=== PATIENT | male | born 1955 | race Caucasian/White ===

== ENCOUNTER 2017-02-17 11:51 | Observation (INO) | payer OTHER ==
[~2017-02-17] VITALS: Ht 177.8 cm; Wt 102.8 kg
[2017-02-17] VITALS (8 sets, daily range): BP systolic 132–148; BP diastolic 76–92; PULSE 64–77; RESP 18–20; O2SAT 93–100
--- NOTE | 2017-02-17 12:05 | ED.REPORT ---
HPI-General Illness Date of Service Feb 17, 2017 ED Provider: Dr. 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 Associated symptoms include intermittent headache, spinning sensation, change in balance, as well as nausea. He has been able to walk on his own, although the transition from sitting to standing up is intensifies his symptoms. Looking upward or downward exacerbates his symptoms. He denies any change in focal numbness or weakness. He presented with severe dizziness and left-sided weakness during his last stroke. Nursing Notes Stated Complaint: HEADACHE Chief Complaint: Headache Nursing Notes Reviewed: Yes Allergies: Coded Allergies: No Known Allergies (Unverified Allergy, Unknown, 03/20/14) General Time Seen by MD: 12:04 Chief Complaint Dizziness Hx Obtained From: Patient, Spouse Arrived By: Walk-in Sudden in Onset?: No Onset Occurred: 4 days ago Symptom Duration: Constant Severity: Current: No pain currently Severity: Maximum: No pain Recent Healthcare: No recent doctor visit, No recent hospitalization Similar Sx Previous: Yes Past Medical History Past Medical History Stroke associated with vertebral occlusion Past Surgical History Surgery involving vertebral occlusion Smoking History Never Smoker Social History No history provided Alcohol Use: "Social" Ambulatory Status Independent Review of Systems Full Review of Systems Constitutional: Denies: Fever Cardiovascular: Denies: Chest pain GI: Reports: Nausea, Denies: Abdominal pain, Vomiting Musculoskeletal: Denies: Back pain Neurologic: Reports: Dizziness, Headache, Lightheaded, Problem walking, Spinning sensation, Denies: Change LOC, Confusion, Focal weakness, Numbness, Seizure, Shaking, Slurred speech, Unable to speak, Vision change Complete sys rev & neg: except as marked. Physical Exam Vital Signs Vital Signs Date Time Temp Pulse Resp B/P Pulse Ox O2 Delivery O2 Flow Rate FiO2 02/17/17 14:02 65 18 137/84 95 Room Air 02/17/17 13:04 68 20 132/85 94 Room Air 02/17/17 11:55 36.0 77 18 148/92 97 Room Air Initial VS: Reviewed, Vital signs normal Head / Eyes: Atraumatic, Normocephalic, PERRL ENT: Mucous membranes moist, Conjunctiva normal, No scleral icterus Neck: Supple, Full range of motion Respiratory: Breath sounds normal, Clear to auscultation, No respiratory distress Cardiovascular: Regular rate & rhythm, Heart sounds normal, Intact distal pulses Abdomen / GI: Soft, Non-tender Extremities: Vascular intact, Neuro intact Skin: Warm, Dry Psychiatric: Mood/affect normal, Behavior normal General/Constitutional: Awake, Alert, No acute distress, Cooperative, Not toxic appearing Neurologic: Oriented X3, Speech NL, No motor deficits, No sensory deficits, Memory NL Vertical nystagmus present NIH = 0 Interpretation & Diagnostics Lab Results Interpretation Result Diagram: 02/17/17 1205 02/17/17 1205 Test 02/17/17 12:05 White Blood Count 8.1th/mm3 (3.8-10.1) Red Blood Count 5.04mil/mm3 (4.40-5.80) Hemoglobin 14.9g/dL (13.8-17.2) Hematocrit 42.3% (41.0-50.0) Mean Corpuscular Volume 83.9fL (81-100) Mean Corpuscular Hemoglobin 29.6pg (27.0-35.0) Mean Corpuscular Hemoglobin Concent 35.2% (32.0-37.0) Red Cell Distribution Width 12.9% (12.3-15.4) Platelet Count 263bil/L (150-400) Neutrophils (%) (Auto) 81.5% (40-74) Lymphocytes (%) (Auto) 12.3% (14-46) Monocytes (%) (Auto) 5.9% (4-12) Eosinophils (%) (Auto) 0% (0-5) Basophils (%) (Auto) 0.2% (0-3) Prothrombin Time 10.0sec (8.1-12.5) Prothromb Time International Ratio 0.94ratio Sodium Level 136mEq/L (134-144) Potassium Level 4.2mEq/L (3.5-5.2) Chloride Level 101mEq/L (97-108) Carbon Dioxide Level 19mmol/L (18-29) Blood Urea Nitrogen 15mg/dL (8-27) Creatinine 1.05mg/dL (0.76-1.27) Estimat Glomerular Filtration Rate 76mL/min (>59) Glucose Level 131mg/dL (60-99) Calcium Level 9.6mg/dL (8.5-10.1) Magnesium Level 2.3mg/dL (1.6-2.6) Total Bilirubin 0.7mg/dL (0.0-1.2) Aspartate Amino Transf (AST/SGOT) 22U/L (0-50) Alanine Aminotransferase (ALT/SGPT) 32U/L (0-44) Alkaline Phosphatase 108U/L (25-160) Troponin T 0.010ug/L (0.0-0.011) Pro-B-Type Natriuretic Peptide 138.3pg/mL (0-210) Total Protein 7.6g/dL (6.4-8.4) Albumin 4.9g/dL (3.4-5.0) Hold Martinez Top Tube Received (Received) ECG Interpretation ECG Interpretation: Sinus rhythm bnormal R-wave progression, early transition. Time: 12:05 Interpreted by: ED physician Abnormal Rate: Rate (69) X-Ray Chest Interpretation Chest Xray Interpretation: IMPRESSION: No acute pulmonary process. Dictated by: Ying Marin M.D. on 02/17/2017 at 12:48 Approved by: Ying Marin M.D. on 02/17/2017 at 12:48 View: Portable, [address] Head Interpretation IMPRESSION: 1. No acute intracranial process. 2. Mild atrophy and chronic microvascular ischemic changes. Dictated by: Ying Marin M.D. on 02/17/2017 at 12:29 Approved by: Ying Marin M.D. on 02/17/2017 at 12:31 Study: Head CT no contrast Interpretation / Wet Read by: Interpret - Radiologist Re-Eval/Medical Decision Med Decision/Clinical Course Findings are highly suspicious for a cerebellar stroke, patient be admitted, aspirin given, briefly discussed with on-call neurology at [facility] who recommends standard stroke evaluation with MRI. Source of Hx: Old records Time of Eval: 13:00 Re-Evaluation/Progress Note: Patient is informed of radiology and EKG result. Consultation #1: Referral / Consult Name: Raj Connor MD Consulted With: Hospitalist Call Returned at: 14:11 Note: Discussed patient current condition. Suggests calling [facility] neurology. Consultation #2: Consulted With: Neurology Call Returned at: 14:13 Note: Discussed with [facility] neurologist Dr. Fulton. Recommends standard stroke workup including MRI. Counseled Regarding: Diagnosis, Lab results, Need for admission Discharge & Departure Primary Impression: CVA (cerebral vascular accident) CVA mechanism: unspecified Qualified Code: I63.9 - Cerebral infarction, unspecified Disposition: ADMITTED TO HOSPITAL Discharge Condition All VS Reviewed: Yes Condition: Stable Referrals: Shelia Kerr MD (PCP) Lizzette Attestation Portions of this note were transcribed by Jaya Joshua and Dale Souza. I, Dr. Balbuena personally performed the history, physical exam and medical decision-making; I reviewed and confirmed the accuracy of the information in the transcribed note. Signed by: Jaya Joshua and Dale Souza, Lizzette, 02/17 1219 copies to: Shelia Kerr MD Risk Factors NIH Stroke Scale Level of Consciousness: Alert and responsive (0) Ask Month & Age: Both questions right (0) Open/Close Eyes/Hand [employer]ter: Performs both tasks (0) Horizontal EO Movements: None (0) Visual Duarte: No visual loss (0) Facial Palsy: Normal symmetry (0) Right Arm Motor Drift (10s): No drift 10 sec (0) Left Arm Motor Drift (10s): No drift 10 sec (0) Right Leg Motor Drift (5s): No drift 5 sec (0) Left Leg Motor Drift (5s): No drift 5 sec (0) Limb Ataxia FNF/Heel-Bartlett: No ataxia (0) Sensation (Arms/Legs/Face): No sensory loss (0) Language Aphasia: No aphasia, normal (0) Dysarthria: No dysarthria, normal (0) Extinction/Inattention: No exctinct/inattent (0) NIHSS Score: 0 Time NIHSS Performed: 12:38 Date NIHSS Performed: Feb 17, 2017 Darren Balbuena DO Feb 17, 2017 12:04 Jaya Joshua Feb 17, 2017 12:14 DALE SOUZA Feb 17, 2017 14:19
[2017-02-17] MEDS ORDERED: 0.9% Sodium Chloride 1,000 ML IV ONE (12:15)
[2017-02-17 12:19] LABS: BASOPHILS % (AUTO) 0.2 % (0-3); EOSINOPHILS % (AUTO) 0 % (0-5); MONOCYTES % (AUTO) 5.9 % (4-12); Mean Corpuscular Hemoglobin 29.6 pg (27.0-35.0); Mean Corpuscular Volume 83.9 fL (81-100); NEUTROPHILS % (AUTO) 81.5 % (40-74); Platelet Count 263 bil/L (150-400)
--- NOTE | 2017-02-17 12:33 | DRSVH ---
PROCEDURE: CT BRAIN WITHOUT CONTRAST ([id number]) INDICATIONS: vertigo, off balance, prior vert art occlusion TECHNIQUE: Noncontrast 4.5 mm thick angled axial sections acquired from the foramen magnum to the vertex, with c oronal reformats. COMPARISON: [facility], CT, ANGIO HEAD AND NECK (P), 03/20/2014, 12:47. [facility], CT, BRAIN (TPA), 03/20/2014, 10:55. [facility], RG, CT HEAD W/O CONTRAST, 10/23/2005, 12: 18. FINDINGS: Image quality: Excellent. CSF spaces: Basal cisterns are patent. No extra-axial fluid collections. The ventricles are symmet alyssa in size and shape. Brain: No intracranial bleeds or masses. There is cerebral volume loss for age, with resultant vent ricular and sulcal prominence. There are periventricular and deep white matter chronic small vessel ischemic changes. There is intracranial internal carotid artery atherosclerosis. Skull and face: Calvarium and visualized facial bones appear intact, without suspicious lesions. Sinuses: Visualized sinuses and mastoids are clear. IMPRESSION: 1. No acute intracranial process. 2. Mild atrophy and chronic microvascular ischemic changes. Dictated by: Ying Marin M.D. on 02/17/2017 at 12:29 Approved by: Ying Marin M.D. on 02/17/2017 at 12:31
[2017-02-17 12:39] LABS: INR 0.94 ratio
[2017-02-17 12:46] LABS: TROPONIN T 0.01 ug/L (0.0-0.011)
--- NOTE | 2017-02-17 12:50 | DRSVH ---
PROCEDURE: X-RAY CHEST ONE VIEW, PORTABLE ([id number]) INDICATIONS: SHORTNESS OF BREATH TECHNIQUE: One view of the chest was acquired. COMPARISON: [facility], , CHEST 1VW (PORTABLE), 03/20/2014, 11:15. FINDINGS: Surgical changes and devices: None. Lungs and pleura: No pleural effusions or pneumothorax. Lungs are clear. Mediastinum: Mediastinal contours appear normal. Heart size is normal. Bones and chest wall: No suspicious bony lesions. Overlying soft tissues appear unremarkable. IMPRESSION: No acute pulmonary process. Dictated by: Ying Marin M.D. on 02/17/2017 at 12:48 Approved by: Ying Marin M.D. on 02/17/2017 at 12:48
[2017-02-17 12:57] LABS: Magnesium 2.3 mg/dL (1.6-2.6)
[2017-02-17] MEDS ORDERED: Polyethylene Glycol (PEG) 17 Gm Powder PO PRN (14:20)
[2017-02-17] MEDS ORDERED: Alum-Mag Hydrox-Simeth 30 mL Suspension PO PRN ×2 (14:20→14:35)
[2017-02-17] MEDS ORDERED: Ondansetron 2 mg/mL 2 mL Inj IVPUSH PRN ×3 (14:20→14:35)
[2017-02-17] MEDS: 0.9% Sodium Chloride 1,000 ML IV SCH ×2 (15:04→21:28)
[2017-02-17] MEDS ORDERED: NEBI10TA2 (17:50)
[2017-02-17] MEDS ORDERED: AMN100C (17:50)
[2017-02-17] MEDS ORDERED: QUET100T69 (17:50)
[2017-02-17] MEDS ORDERED: LIT300 PO (17:54)
[2017-02-17] MEDS ORDERED: ATOR20TA PO (17:54)
[2017-02-17] MEDS ORDERED: FUR20 PO (17:54)
[2017-02-17] MEDS ORDERED: ASPI-973 PO (17:54)
[2017-02-17] MEDS ORDERED: LAMO200T2 PO (17:54)
--- NOTE | 2017-02-17 20:05 | NUR ---
Back from MRI
--- NOTE | 2017-02-17 20:37 | DRSVH ---
PROCEDURE: MRI STROKE PROTOCOL ([id number]) Pre- and post-contrast brain MRI, non-contrast brain MR angiogram, pre- and postcontrast neck MR wendy ogram INDICATIONS: Dizziness with Ataxia,right vertebral artery surgery 2014 TECHNIQUE: Brain: Noncontrast axial T1 spin echo, axial T2 fast spin echo, sagittal and axial FLAIR, coronal T2 fast spin echo, axial gradient echo, axial diffusion and ADC through the brain. After the administr ation of contrast, axial 3D VIBE of the cranial vasculature and brain. Brain MRA: Non-contrast 3-D time of flight MR angiogram, with multiple cyklqpo-zqmyudasz-gbmifqkuud (MIP) reformats performed. Neck MRA: Axial and sagittal TruFISP through the neck. Coronal dynamic MR angiogram during administ ration of contrast in the arterial and venous phases, with 3-dimenstional fvqnjmp-ptkjochog-xcotvfifk n (MIP) reformats constructed from subtraction images. COMPARISON: [facility], MR, MR ANGIO HEAD W CON, 03/20/2014, 15:50. [facility], [facility]RAIN W&WO CON, 03/20/2014, 15:50. [facility], CT, ANGIO HEAD AND NECK (P), , 12:47. [facility], CT, BRAIN (TPA), 03/20/2014, 10:55. [facility], RG, CT HEAD W/O CONTRAST, 10/23/2005, 12:18. [facility], CT, CT BRAIN WO CON, 02/17/2017, 12:22. FINDINGS: Image quality: Excellent. BRAIN: The ventricular system and cortical sulci demonstrate atrophy, consistent for the patient's stated ag e. There are areas of increased T2/FLAIR signal intensity within the periventricular and subcortical white matter. There is no acute intra-or extra axial fluid collection. No acute hemorrhage, mass les ion or midline shift. Brainstem is unremarkable. There are no areas of restricted diffusion. Globes a re symmetrical. Sinuses are aerated. Osseous structures are intact. BRAIN MR ANGIOGRAM: The posterior circulation demonstrates a left vertebral artery dominance. Basilar artery and posterio r cerebral arteries demonstrate no areas of hemodynamically significant stenosis, vascular occlusion or aneurysmal dilation. Posterior communicating arteries are within normal limits. There is a focus o f signal loss in the distal right vertebral artery. It is noted there is a corresponding to metallic artifact on a CT examination of 02/17/17. This likely corresponds to previous surgical clip and focal occlusion placed secondary to dissection, according to history. NECK MR ANGIOGRAM: The origins of the left and right common, internal and external carotid arteries demonstrate no areas of hemodynamically significant stenosis, vascular occlusion or aneurysmal dilation. Origins of the r ight vertebral artery demonstrates no areas of hemodynamically significant stenosis, vascular occlusi on or aneurysmal dilation. Motion is present the margin of the left vertebral artery. Area of underly ing stenosis cannot be excluded. Aortic arch demonstrates conventional anatomy. Limited, visualized p ortions subclavian vasculature are unremarkable. IMPRESSION: 1. No acute intracranial process. 2. Mild atrophy and chronic microvascular ischemic changes. 3. No areas of hemodynamically significant stenosis, vascular occlusion or aneurysmal dilation within the posterior circulation. It is noted there is loss of signal within the distal aspect of the right vertebral artery. This is consistent with prior examination history demonstrating distal vertebral o cclusion and subsequent surgical clip. 4. No areas of hemodynamically significant stenosis, vascular occlusion or aneurysmal dilation within the anterior circulation. 5. No areas of hemodynamically significant stenosis, vascular occlusion or aneurysmal dilation within the neck vasculature. As noted above, there is motion artifact limiting evaluation at the origin of the left vertebral artery. The estimate of stenosis included in the report of the imaging study was calculated using the NASCET method Dictated by: Ying Marin M.D. on 02/17/2017 at 20:24 Approved by: Ying Marin M.D. on 02/17/2017 at 20:35
--- NOTE | 2017-02-17 23:13 | PCM.PNMED ---
Subjective Date of Service Feb 17, 2017 Exam Vital Signs Vital Sign - Last Date Time Temp Pulse Resp B/P Pulse Ox O2 Delivery O2 Flow Rate FiO2 02/17/17 20:57 36.6 71 20 143/84 97 Room Air Lab and Diagnostics Result Diagram: 02/17/17 1205 02/17/17 1205 Raj Connor MD Feb 17, 2017 23:13 has not fallen. he had no balance problems however things were partially spinning and today he felt like he might fall. His brought him to [facility] emergency room for further evaluation. Patient was evaluated in the emergency room by Dr. Darren Balbuena chest x-ray showed no acute pulmonary process and a CT scan that showed no acute intracranial process however there is mild atrophy and chronic microvascular ischemic changes seen. An NIHSS stroke scale evaluation was performed and the patient's and NIHSS score was 0. 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 Patient was admitted to the hospitalist service for further evaluation and treatment. Lab and Diagnostics Result Diagram: 02/17/17 1205 02/17/17 1205 X-Rays, CTs and MRIs PROCEDURE: X-RAY CHEST ONE VIEW, PORTABLE ([id number]) INDICATIONS: SHORTNESS OF BREATH TECHNIQUE: One view of the chest was acquired. COMPARISON: [facility], CR, CHEST 1VW (PORTABLE), 03/20/2014, 11:15. FINDINGS: Surgical changes and devices: None. Lungs and pleura: No pleural effusions or pneumothorax. Lungs are clear. Mediastinum: Mediastinal contours appear normal. Heart size is normal. Bones and chest wall: No suspicious bony lesions. Overlying soft tissues appear unremarkable. IMPRESSION: No acute pulmonary process. Dictated by: Ying Marin M.D. on 02/17/2017 at 12:48 Approved by: Ying Marin M.D. on 02/17/2017 at 12:48 PROCEDURE: CT BRAIN WITHOUT CONTRAST ([id number]) INDICATIONS: vertigo, off balance, prior vert art occlusion TECHNIQUE: Noncontrast 4.5 mm thick angled axial sections acquired from the foramen magnum to the vertex, with coronal reformats. COMPARISON: [facility], CT, ANGIO HEAD AND NECK (P), 03/20/2014, 12: 47. [facility], CT, BRAIN (TPA), 03/20/2014, 10:55. [facility] , RG, CT HEAD W/O CONTRAST, 10/23/2005, 12:18. FINDINGS: Image quality: Excellent. CSF spaces: Basal cisterns are patent. No extra-axial fluid collections. The ventricles are symmetric in size and shape. Brain: No intracranial bleeds or masses. There is cerebral volume loss for age , with resultant ventricular and sulcal prominence. There are periventricular and deep white matter chronic small vessel ischemic changes. There is intracranial internal carotid artery atherosclerosis. Skull and face: Calvarium and visualized facial bones appear intact, without suspicious lesions. Sinuses: Visualized sinuses and mastoids are clear. IMPRESSION: 1. No acute intracranial process. 2. Mild atrophy and chronic microvascular ischemic changes. Dictated by: Ying Marin M.D. on 02/17/2017 at 12:29 Approved by: Ying Marin M.D. on 02/17/2017 at 12:31 PROCEDURE: MRI STROKE PROTOCOL ([id number]) Pre- and post-contrast brain MRI, non-contrast brain MR angiogram, pre- and postcontrast neck MR angiogram INDICATIONS: Dizziness with Ataxia,right vertebral artery surgery 2014 TECHNIQUE: Brain: Noncontrast axial T1 spin echo, axial T2 fast spin echo, sagittal and axial FLAIR, coronal T2 fast spin echo, axial gradient echo, axial diffusion and ADC through the brain. After the administration of contrast, axial 3D VIBE of the cranial vasculature and brain. Brain MRA: Non-contrast 3-D time of flight MR angiogram, with multiple maximum- intensity-projection (MIP) reformats performed. Neck MRA: Axial and sagittal TruFISP through the neck. Coronal dynamic MR angiogram during administration of contrast in the arterial and venous phases, with 3-dimenstional ysclqje-dcwioweoe-vsboyduyup (MIP) reformats constructed from subtraction images. COMPARISON: [facility], MR, MR ANGIO HEAD W CON, 03/20/2014, 15:50. [facility], MR, MR BRAIN W&WO CON, 03/20/2014, 15:50. [facility], CT, ANGIO HEAD AND NECK (P), 03/20/2014, 12:47. [facility], CT, BRAIN (TPA), 03/20/2014, 10:55. [facility], RG, CT HEAD W/O CONTRAST, 10/23/2005, 12:18. [facility], CT, CT BRAIN WO CON, 2016, 12:22. FINDINGS: Image quality: Excellent. BRAIN: The ventricular system and cortical sulci demonstrate atrophy, consistent for the patient's stated age. There are areas of increased T2/FLAIR signal intensity within the periventricular and subcortical white matter. There is no acute intra-or extra axial fluid collection. No acute hemorrhage, mass lesion or midline shift. Brainstem is unremarkable. There are no areas of restricted diffusion. Globes are symmetrical. Sinuses are aerated. Osseous structures are intact. BRAIN MR ANGIOGRAM: The posterior circulation demonstrates a left vertebral artery dominance. Basilar artery and posterior cerebral arteries demonstrate no areas of hemodynamically significant stenosis, vascular occlusion or aneurysmal dilation. Posterior communicating arteries are within normal limits. There is a focus of signal loss in the distal right vertebral artery. It is noted there is a corresponding to metallic artifact on a CT examination of 02/17/17. This likely corresponds to previous surgical clip and focal occlusion placed secondary to dissection, according to history. NECK MR ANGIOGRAM: The origins of the left and right common, internal and external carotid arteries demonstrate no areas of hemodynamically significant stenosis, vascular occlusion or aneurysmal dilation. Origins of the right vertebral artery demonstrates no areas of hemodynamically significant stenosis, vascular occlusion or aneurysmal dilation. Motion is present the margin of the left vertebral artery. Area of underlying stenosis cannot be excluded. Aortic arch demonstrates conventional anatomy. Limited, visualized portions subclavian vasculature are unremarkable. IMPRESSION: 1. No acute intracranial process. 2. Mild atrophy and chronic microvascular ischemic changes. 3. No areas of hemodynamically significant stenosis, vascular occlusion or aneurysmal dilation within the posterior circulation. It is noted there is loss of signal within the distal aspect of the right vertebral artery. This is consistent with prior examination history demonstrating distal vertebral occlusion and subsequent surgical clip. 4. No areas of hemodynamically significant stenosis, vascular occlusion or aneurysmal dilation within the anterior circulation. 5. No areas of hemodynamically significant stenosis, vascular occlusion or aneurysmal dilation within the neck vasculature. As noted above, there is motion artifact limiting evaluation at the origin of the left vertebral artery. The estimate of stenosis included in the report of the imaging study was calculated using the NASCET method Dictated by: Ying Marin M.D. on 02/17/2017 at 20:24 Approved by: Ying Marin M.D. on 02/17/2017 at 20:35 Raj Connor MD Feb 17, 2017 23:13
--- NOTE | 2017-02-17 23:20 | PCM.HPMED ---
Subjective Date of Service Feb 17, 2017 Primary Provider: Admitting Physician: Raj Connor MD Primary Care Physician: Shelia Kerr MD Attending Physician: Raj Connor MD Chief Complaint: Dizziness History of Present Illness: Patient had intermittent headaches over the last several days which he states states felt like a "stress headaches" but different. For dinner last night the patient states that his noticed that he was hyperventilating and felt a pressure in his chest and was visibly pale. Patient began to hyperventilate again this morning and felt queasy with "goose bumps" on his arms. Patient then developed dizziness were he began feeling like he was going to fall and he has not fallen. he had no balance problems however things were partially spinning and today he felt like he might fall. His brought him to [facility] emergency room for further evaluation. Patient was evaluated in the emergency room by Dr. Darren Balbuena chest x-ray showed no acute pulmonary process and a CT scan that showed no acute intracranial process however there is mild atrophy and chronic microvascular ischemic changes seen. An NIHSS stroke scale evaluation was performed and the patient's and NIHSS score was 0. 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 Patient was admitted to the hospitalist service for further evaluation and treatment. Review of Systems: General: Patient lately has been having intermittent headaches these became worse prior to admission HEENT: Patient has headache, patient has no diplopia, patient has no changes in vision. Over, he does wear glasses. Patient has no problems with his nose or throat. He wears hearing aids in both ears. Patient has multiple dental problems which he did not elaborate on. Patient has no pharyngitis or history of thrush. Neck: Patient has no stiffness in the neck. Patient has no lymphadenopathy. Patient has no other problems with their neck. Pulmonary: Patient has no shortness of breath, no cough, no expectoration of sputum. Patient has no pleurisy. Patient has no chest pain. Patient has no history of asthma or COPD. Cardiovascular: Patient has no chest pain. He had a stress test 20-25 years ago. Patient has no history of heart murmur. Patient has no palpitations. Patient has no history of myocardial infarction. Patient has no history of coronary artery disease. Gastrointestinal: Patient has no history of hepatitis A, B or C. Patient has no history of peptic ulcer disease. Patient has no history of gastroesophageal reflux disease. Patient has no history of nausea, vomiting, or diarrhea. Patient has no history of hematemesis. However, he did have hematochezia and melena when he had a Meckel's diverticulum which was operated on in 1994. Patient has no history of colitis. Renal: Patient has no history of kidney disease. No history of kidney stones. Genitourinary: Patient has no history of dysuria, frequency, or incontinence. Patient has no previous history of genitourinary problems. She states he recently had a prostate exam which was normal Musculoskeletal: Patient has no history of muscular skeletal problems. 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 Neurologic: Patient has a history of a cerebrovascular accident 3 years ago. 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 Patient had some residual left-sided weakness and some residual expressive aphasia. He also is troubled with figures and has played cribbage for for over 40 years with his and his states that he has to use his fingers to count during cribbage games which he never had to do before. Psychiatric: Patient was honorably discharged from the with full medical benefits after he came she was exposed to some chemicals and was affected mentally by these chemicals and was diagnosed with severe schizophrenia and was placed on psychiatric drugs including Stelazine by the . Again he was given an honorable discharge with full medical benefits. He is in group home. He does not understand any of this that happened to him most recently he was was taken off of all these drugs and was diagnosed with bipolar disorder and is currently on lithium. The remainder of the entire review of systems was reviewed with patient and is as mentioned above otherwise negative. Allergies Coded Allergies: No Known Allergies (Unverified Allergy, Unknown, 03/20/14) Home Medications Amantadine 100 mg by mouth daily aspirin 81 mg by mouth daily atorvastatin 20 mg by mouth daily at bedtime furosemide 20 mg by mouth daily Lamictal 200 mg by mouth daily lithium 300 mg by mouth daily at bedtime Bystolic 10 mg by mouth daily Seroquel 100 mg by mouth daily at bedtime [facility] Bipolar disorder patient had a lithium level which was normal 2 months ago. Her by Dr. 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 Status post coiling with a barricade coil of the right vertebral artery. Surgical History Status post no surgery Status post tonsillectomy Status post surgery for Meckel's diverticulum status post appendectomy status post cholecystectomy Status post barricade coil placement in the right vertebral artery for a right vertebral artery aneurysm. Family History Patient's father is 85 years old and has cancer of the esophagus which he survived Patient's mother is 84 and has high blood pressure she has had a mini stroke Patient has 2 sisters who are healthy and one lives in [place], lives in [place] Social History Hx Alcohol Use: Yes Alcoholic Drinks Per Day: 2-3 beers occasionally not daily Hx Substance Use: No Smoking Status: Former Smoker (patient smoked 3 packs per day for 8 years. He quit smoking 40 years ago) Living Arrangement: with Family Additional Information Patient was born in [place], [place] [employer]. Patient's father then moved the family to [place], [place]. Patient then went to high school in [facility]. He did not graduate but did get his GED. He then joined the [employer] and was in the [employer] for 1 year. During that year he was exposed to some chemical testing so he believes. The patient states that as result of this chemical testing he develops with the [employer] classified as severe schizophrenia. Patient was placed on multiple psychotropic drugs including Stelazine. Patient was given an honorable discharge from the with full group home and health care for life and after he got out he felt like the Stelazine was "cooking my head" patient then saw a private psychiatrist and was treated for anxiety with benzodiazepines patient began dating his best friend's sister and her and they have been now for 42 years. He lives in [facility] until 1983. 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 Patient is and moved to a warmer climate to [facility] and then [facility] 20 years of 1979. They got out of the heat and moved to [facility]. 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 Patient and worked for [employer] for 8 years. 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 He then took a job working for different [employer] as a snack bar cashier. He then lost his job after accidentally cashing out a tic at the aortic [employer]. He is now working as a preparer making department at [employer]. He is quite stressed out by this job. And does not like the job. Patient lives at home with his and he has 2 daughters. Exam Vital Signs Vital Sign - Last Date Time Temp Pulse Resp B/P Pulse Ox O2 Delivery O2 Flow Rate FiO2 02/17/17 20:57 36.6 71 20 143/84 97 Room Air Exam General: Patient is in no apparent distress. HEENT: Head is atraumatic and normocephalic. Eyes: Pupils are equally round and reactive to light and accommodation. Extraocular muscles are intact. Sclera are white, anicteric. Subconjunctival mucosa is pink. Ears and nose are unremarkable. Oropharynx: There is no mucosal lesions, there is no thrush, there is no pharyngitis. Neck: Is supple, there are no nodes, or masses or tenderness. Chest: Is clear to auscultation and percussion. There are no rales, rhonchi, wheezes or rubs. Heart: Rate, rhythm is regular. There is no murmur, rub or gallop. Abdomen: Good bowel sounds are present. Abdomen is soft, nontender, no organomegaly or masses were appreciated. Extremities: Are symmetrical and well perfused. There is no edema, there is no cellulitis, no rash. Neurologic: There are no focal neurological deficits. Cranial nerves II through XII are intact. There are no sensory or motor deficits. The patient occasionally has some expressive aphasia. He states his speech is worse when he is very tired. Psychiatric: Patients mood is calm and shows no sign of agitation. Genital: Deferred Rectal: Deferred Lab and Diagnostics Result Diagram: 02/17/17 1205 02/17/17 1205 X-Rays, CTs and MRIs PROCEDURE: X-RAY CHEST ONE VIEW, PORTABLE ([id number]) INDICATIONS: SHORTNESS OF BREATH TECHNIQUE: One view of the chest was acquired. COMPARISON: [facility], , CHEST 1VW (PORTABLE), 03/20/2014, 11:15. FINDINGS: Surgical changes and devices: None. Lungs and pleura: No pleural effusions or pneumothorax. Lungs are clear. Mediastinum: Mediastinal contours appear normal. Heart size is normal. Bones and chest wall: No suspicious bony lesions. Overlying soft tissues appear unremarkable. IMPRESSION: No acute pulmonary process. Dictated by: Ying Marin M.D. on 02/17/2017 at 12:48 Approved by: Ying Marin M.D. on 02/17/2017 at 12:48 PROCEDURE: CT BRAIN WITHOUT CONTRAST ([id number]) INDICATIONS: vertigo, off balance, prior vert art occlusion TECHNIQUE: Noncontrast 4.5 mm thick angled axial sections acquired from the foramen magnum to the vertex, with coronal reformats. COMPARISON: [facility], CT, ANGIO HEAD AND NECK (P), 03/20/2014, 12: 47. [facility], CT, BRAIN (TPA), 03/20/2014, 10:55. [facility] , , CT HEAD W/O CONTRAST, 10/23/2005, 12:18. FINDINGS: Image quality: Excellent. CSF spaces: Basal cisterns are patent. No extra-axial fluid collections. The ventricles are symmetric in size and shape. Brain: No intracranial bleeds or masses. There is cerebral volume loss for age , with resultant ventricular and sulcal prominence. There are periventricular and deep white matter chronic small vessel ischemic changes. There is intracranial internal carotid artery atherosclerosis. Skull and face: Calvarium and visualized facial bones appear intact, without suspicious lesions. Sinuses: Visualized sinuses and mastoids are clear. IMPRESSION: 1. No acute intracranial process. 2. Mild atrophy and chronic microvascular ischemic changes. Dictated by: Ying Marin M.D. on 02/17/2017 at 12:29 Approved by: Ying Marin M.D. on 02/17/2017 at 12:31 PROCEDURE: MRI STROKE PROTOCOL ([id number]) Pre- and post-contrast brain MRI, non-contrast brain MR angiogram, pre- and postcontrast neck MR angiogram INDICATIONS: Dizziness with Ataxia,right vertebral artery surgery 2014 TECHNIQUE: Brain: Noncontrast axial T1 spin echo, axial T2 fast spin echo, sagittal and axial FLAIR, coronal T2 fast spin echo, axial gradient echo, axial diffusion and ADC through the brain. After the administration of contrast, axial 3D VIBE of the cranial vasculature and brain. Brain MRA: Non-contrast 3-D time of flight MR angiogram, with multiple maximum- intensity-projection (MIP) reformats performed. Neck MRA: Axial and sagittal TruFISP through the neck. Coronal dynamic MR angiogram during administration of contrast in the arterial and venous phases, with 3-dimenstional xgvmoxd-matlwvygp-anztyhdqlg (MIP) reformats constructed from subtraction images. COMPARISON: [facility], MR, MR ANGIO HEAD W CON, 03/20/2014, 15:50. [facility], MR, MR BRAIN W&WO CON, 03/20/2014, 15:50. [facility], CT, ANGIO HEAD AND NECK (P), 03/20/2014, 12:47. [facility], CT, BRAIN (TPA), 03/20/2014, 10:55. [facility], RG, CT HEAD W/O CONTRAST, 10/23/2005, 12:18. [facility], CT, CT BRAIN WO CON, 2016, 12:22. FINDINGS: Image quality: Excellent. BRAIN: The ventricular system and cortical sulci demonstrate atrophy, consistent for the patient's stated age. There are areas of increased T2/FLAIR signal intensity within the periventricular and subcortical white matter. There is no acute intra-or extra axial fluid collection. No acute hemorrhage, mass lesion or midline shift. Brainstem is unremarkable. There are no areas of restricted diffusion. Globes are symmetrical. Sinuses are aerated. Osseous structures are intact. BRAIN MR ANGIOGRAM: The posterior circulation demonstrates a left vertebral artery dominance. Basilar artery and posterior cerebral arteries demonstrate no areas of hemodynamically significant stenosis, vascular occlusion or aneurysmal dilation. Posterior communicating arteries are within normal limits. There is a focus of signal loss in the distal right vertebral artery. It is noted there is a corresponding to metallic artifact on a CT examination of 02/17/17. This likely corresponds to previous surgical clip and focal occlusion placed secondary to dissection, according to history. NECK MR ANGIOGRAM: The origins of the left and right common, internal and external carotid arteries demonstrate no areas of hemodynamically significant stenosis, vascular occlusion or aneurysmal dilation. Origins of the right vertebral artery demonstrates no areas of hemodynamically significant stenosis, vascular occlusion or aneurysmal dilation. Motion is present the margin of the left vertebral artery. Area of underlying stenosis cannot be excluded. Aortic arch demonstrates conventional anatomy. Limited, visualized portions subclavian vasculature are unremarkable. IMPRESSION: 1. No acute intracranial process. 2. Mild atrophy and chronic microvascular ischemic changes. 3. No areas of hemodynamically significant stenosis, vascular occlusion or aneurysmal dilation within the posterior circulation. It is noted there is loss of signal within the distal aspect of the right vertebral artery. This is consistent with prior examination history demonstrating distal vertebral occlusion and subsequent surgical clip. 4. No areas of hemodynamically significant stenosis, vascular occlusion or aneurysmal dilation within the anterior circulation. 5. No areas of hemodynamically significant stenosis, vascular occlusion or aneurysmal dilation within the neck vasculature. As noted above, there is motion artifact limiting evaluation at the origin of the left vertebral artery. The estimate of stenosis included in the report of the imaging study was calculated using the NASCET method Dictated by: Ying Marin M.D. on 02/17/2017 at 20:24 Approved by: Ying Marin M.D. on 02/17/2017 at 20:35 Assessment & Plan Patient had intermittent headaches over the last several days which he states states felt like a "stress headaches" but different. For dinner last night the patient states that his noticed that he was hyperventilating and felt a pressure in his chest and was visibly pale. Patient began to hyperventilate again this morning and felt queasy with "goose bumps" on his arms. Patient then developed dizziness were he began feeling like he was going to fall and he has not fallen. he had no balance problems however things were partially spinning and today he felt like he might fall. His brought him to [facility] emergency room for further evaluation. Patient was evaluated in the emergency room by Dr. Darren Balbuena chest x-ray showed no acute pulmonary process and a CT scan that showed no acute intracranial process however there is mild atrophy and chronic microvascular ischemic changes seen. An NIHSS stroke scale evaluation was performed and the patient's and NIHSS score was 0. 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 Patient was admitted to the hospitalist service for further evaluation and treatment. # Dizziness and ataxia present at the time of admission. Ongoing - Concerning as patient has a history of right vertebral artery aneurysm status post repair [place] placement at [facility] in [place], [place]. - MRI has been completed - Aspirin has been given in the emergency room, will continue - Consider neurology consultation with Dr. Gao or [facility]: Neurology department - Check lithium level - Telemetry monitoring - Close observation - Check echocardiogram pending - Check carotid Dopplers pending # Hypertension - We will continue home medications but would allow "permissive hypertension ". # Bipolar disorder - Continue lithium and other home meds - Check lithium level Disposition: Consider neurology consultation with either Dr. Leonid Gao locally or [facility] neurology department Pain Evaluation: Adequate Pain Control GI Prophylaxis: Not indicated VTE Prophylaxis: Sub-Q Enoxaparin Resuscitation Status: CPR: Attempt Resuscitation NikolasRaj MD Feb 17, 2017 23:20
[2017-02-18 01:11] VITALS: BP 121/74; PULSE 64; RESP 20; O2SAT 94
[2017-02-18 05:41] LABS: BASOPHILS % (AUTO) 0.3 % (0-3); EOSINOPHILS % (AUTO) 0.3 % (0-5); MONOCYTES % (AUTO) 8.4 % (4-12); Mean Corpuscular Hemoglobin 29.5 pg (27.0-35.0); Mean Corpuscular Volume 87.8 fL (81-100); Platelet Count 219 bil/L (150-400)
[2017-02-18 06:01] VITALS: BP 132/76; PULSE 66; RESP 20; O2SAT 95
[2017-02-18 06:23] LABS: INR 0.95 ratio
--- NOTE | 2017-02-18 06:28 | NUR ---
Neuro: Pt states dizziness again this morning upon waking, making him feel "woozey". Denies lightheadedness when standing though and able to ambulate into the bathroom. Stated "I felt like this all day yesterday". After being upright for a few minutes, pt states feeling better standing; dizzy feeling continues but not as "queasy". Tylenol given for headache. Alert and oriented x3. RN swallow only done, pt continues with Puree diet until speech swallow eval.
[2017-02-18 06:35] LABS: Magnesium 2.2 mg/dL (1.6-2.6); Phosphorus 4.1 mg/dL (2.5-4.9)
[2017-02-18] MEDS ORDERED: lamoTRIgine 100 mg Tablet PO SCH (08:30)
--- NOTE | 2017-02-18 08:37 | NUR ---
Evaluation completed. Please go to "Notes" then click on "Assessments and Notes" (bottom left corner of screen). Then select appropriate discipline tab on top of screen.
--- NOTE | 2017-02-18 09:22 | NUR ---
Pt. screened for OT needs. None identified. Pt. with good UE strength, coordination, ROM. Sensation intact. Reports "undercurrent" of mild dizziness. Encouraged careful, methodical functional transfers. DC OT order. No charge. Jonathan Nieto, OTR/L
--- NOTE | 2017-02-18 09:28 | NUR ---
Evaluation completed. Please go to "Notes" then click on "Assessments and Notes" (bottom left corner of screen). Then select appropriate discipline tab on top of screen.
[2017-02-18 09:31] VITALS: PULSE 72
[2017-02-18 09:44] VITALS: BP_SYST 130; BP_SYST 148; BP_DIAS 81; BP_DIAS 92; PULSE 62; PULSE 73; RESP 18; O2SAT 96
--- NOTE | 2017-02-18 09:47 | DRSVH ---
PROCEDURE: US BILATERAL DUPLEX DOPPLER IMAGING OF THE CAROTIDS ([id number]) INDICATIONS: Dizziness with ataxia TECHNIQUE: Color and pulse Doppler interrogation was performed of both carotid systems, with image documentation and velocity measurements. COMPARISON: None. FINDINGS: All stenosis calculations are based on NASCET criteria. Right side: Brachial blood pressure: 132/76 mm Hg. Common Carotid Artery(Distal) PSV: 84.50 cm/s Internal Carotid Artery PSV- Proximal: 63.60 cm/s Mid-lon.30 cm/s Distal: 82.10 cm/s EDV - Proximal: 22.60 cm/s Mid-lon.90 cm/s Distal: 31.80 cm/s External Carotid Artery(Proximal) PSV: 87.30 cm/s ICA/CCA PSV ratio: 1.3 Murray scale imaging description: Normal. Percent internal carotid artery stenosis: No stenosis. Vertebral artery: Flow direction is antegrade. Left side: Brachial blood pressure: 143/84 mm Hg. Common Carotid Artery(Distal) PSV: 79.60 cm/s Internal Carotid Artery PSV - Proximal: 69.90 cm/s Mid-lon.90 cm/s Distal: 69.90 cm/s EDV - Proximal: 20.10 cm/s Mid-lon.20 cm/s Distal: 32.40 cm/s External Carotid Artery(Proximal) PSV: 86.90 cm/s ICA/CCA PSV ratio: 0.9 Murray scale imaging description: Normal. Percent internal carotid artery stenosis: No stenosis.. Vertebral artery: Flow direction is antegrade. IMPRESSION: No carotid stenosis. Dictated by: Stephen COHN Interpreted: Ying Marin MD on 02/18/2017 at 9:45 Transcribed by: KLAUS on 02/18/2017 at 9:46 Approved by: Ying Marin M.D. on 02/18/2017 at 17:12
[2017-02-18] MEDS ORDERED: MECL-114 PO (10:08)
--- NOTE | 2017-02-18 10:39 | NUR ---
SW - Brief Note/Readiness for discharge Data: Pt is a 61 y/o male admitted 02/17/2017 for CVA per H&P. Pt discussed in morning rounds and is likley to discharge home today, is up and independent in room. Pt's insurance is [employer] and PCP is Dr. Chatman. Per H&P pt is diagnosed with Bipolar disorder, well-managed on meds. PT evaluation is complete and PT is recommending outpatient rehab. SW met with pt at bedside to discuss discharge plan. Pt resides at home with family in [place] and family will provide transport home when medically ready. No further needs assessed. SW will continue to follow. Assessment: Pt who is independent at baseline Plan: Pt to discharge home via POV when medically ready, no needs. SW will continue to follow. DEEPALI Meeks
--- NOTE | 2017-02-18 11:44 | PCM.DIMED ---
Discharge Instructions Date of Service February 18, 2017 Dates of Hospitalization Feb 17, 2017 at 14:31 Discharge Diagnosis Discharge Diagnosis probable TIA vs Benign Paroxysmal Peripheral Vertigo Medication Instructions You can take Meclizine for dizziness as needed two time a day Diet No restrictions Activity No restrictions Patient Instructions You were hospitalized with symptoms concerning for stroke. However work-ups in the hospital did not show any signs of acute stroke.It is possible that her symptoms were related to benign condition such as peripheral vertigo or a copious signs of mini stroke or possibly related to migraine. As we discussed, if you continue to have symptoms, begin first try medicine however, if it continues with severe degree, please return to the hospital for sick for medical help Please control your risk factors to prevent stroke in the future: no smoking, control your blood pressure and cholesterol with medicine, healthy diet with regular exercise. Follow-up plan Please follow-up with your primary doctor in 2 weeks Follow-up Provider: Shelia Kerr MD Follow-up with PCP in: 2 weeks Fang Interiano MD February 18, 2017 11:43
[2017-02-18 14:20] VITALS: BP 137/88; PULSE 79; RESP 18; O2SAT 97
--- NOTE | 2017-02-18 14:33 | NUR ---
SW - Discharge Data: Pt is on day 1 of hospitalization for CVA per H&P. EM reviewed. Pt is medically cleared to discharge home and is up and independent in room. family will provide transport home. All updated an agreeable to plan. No further needs assessed. Assessment: Pt who is independent at baseline Plan: Pt to discharge home via POV, no needs. DEEPALI Meeks
--- NOTE | 2017-02-18 14:54 | NUR ---
Discharge Reviewed d/c instructions with pt and in room, including care notes and new prescriptions, pt signed and given originals, copies to chart. IV d/c intact, tele removed. All belongings packed by pt in room and taken with them. VS stable at d/c. Pt left unit on foot accompanied by his and carrying all belongings.
--- NOTE | 2017-02-19 05:50 | DRSVH ---
[facility] [address] [place] [address] Echocardiogram Report Name: SAVANNA CONRAD BStudy Date: 02/18/2017 Height: 70 in Hospital Exam Location: [facility] Weight: 227 lb Gender: Male BSA: 2.2 m2 : 08/25/1958 Age: 58 yrs BP: 132/76 mmHg Reason For Study: Dizziness Ordering Physician: HOSPITALIST [facility] Performed By: Joi Ames Referring Physician: Dr. Shelia Kerr Interpretation Summary 1. Normal left ventricular size, wall thickness and systolic function with an estimated EF of 60-65% 2. Normal right ventricular size and systolic function. The estimated right atrial pressure is low. 3. No evidence for valvular pathology Compared to the previous study, the estimated right atrial pressure is now lower. With scanning in the abdominal area, there is an incidental finding of a left sided cystic structure (possible renal) - clinical correlation recommended Procedure: A two-dimensional transthoracic echocardiogram with color flow and Doppler was performed. The study quality was technically good. Comparison is made with the echocardiogram of 04-01-14. There is an incidental finding of a 10 cm left renal cyst. The patient was in normal sinus rhythm during the exam. Left Ventricle: The left ventricle is normal in size. There is normal left ventricular wall thickness. The ejection fraction is estimated to be 60-65%. No obvious focal wall motion abnormalities. Assessment of diastolic parameters indicates normal left ventricular diastolic function and normal filling pressures. Right Ventricle: The right ventricle is borderline dilated. The right ventricular systolic function is normal. Atria: The left atrium is moderately dilated. Right atrial size is normal. No color doppler evidence for an ASD. Mitral Valve: The mitral valve is normal in structure and function. There is no mitral regurgitation noted. Aortic Valve: The aortic valve is trileaflet. The aortic valve opens well. No aortic regurgitation is present. Tricuspid Valve: The tricuspid valve leaflets are thin and pliable. There is mild tricuspid regurgitation. The right ventricular systolic pressure is estimated at 22 mmHg assuming a right atrial pressure of 3 mm Hg. Pulmonic Valve: The pulmonic valve is normal in structure and function. There is a trace or physiologic amount of pulmonic regurgitation. Great Vessels: The aortic root is mildly dilated. The ascending aorta is mildly enlarged. The aortic arch is mildly enlarged. The diameter of the ascending aorta is 3.9 cm. The IVC is of normal diameter and collapses greater than 50% with a sniff. This suggests a low right atrial pressure of 3 mm Hg. Pericardium/ Pleura There is no pericardial effusion. There is no pleural effusion. MMode/2D Measurements & Calculations LVIDd: 5.3 cm LA dimension: 3.9 cm RA long axis Ao root diam LVIDs: 2.8 cm FS: 46.8 % LA A2 area: 27.2 cm RA area Aortic Jxn: 3.0 cm IVSd: 0.85 cm LA A4 area: 28.1 cm asc Aorta Diam LVPWd: 0.88 cm LA length (vol) : 21.6 cm RA vol Ao Arch Diam (Prox LA vol: 107.5 ml : 73.1 ml Trans): 3.6 cm LA vol index RA : 33.2 mm/ RVDd major IVC diam: 1.3 cm : 6.0 cm LV roberts. diameter/BSA LV sys. diameter/BSA RVD1 (basal) RVD2 (mid): 3.7 cm (cm/m^2): 2.4 (cm/m^2): 1.3 Doppler Measurements & Calculations Ao V2 max MV E max erich MV E/A: 1.1 TR max erich : 213.8 cm/sec : 77.7 cm/sec Med Peak E' Erich : 217.1 cm/sec Ao max PG MV A max erich TR max PG : 18.3 mmHg : 71.7 cm/sec E/E' med: 11.6 : 18.8 mmHg Ao mean PG MV P1/2t: 85.8 msec Lat Peak E' Erich PA V2 max : 9.3 mmHg : 106.2 cm/sec E/E' lat: 10.0 PA mean PG E/e' average: 10.8 MV A dur: 0.13 sec PA Accel Time : 0.15 sec MV dec time MV P1/2t max erich Ao V2 mean PA V2 mean : 0.28 sec : 140.5 cm/sec : 71.7 cm/sec MVA(P1/2t): 2.6 cm2 Ao V2 VTI: 40.9 cm Reading Physician:03:04 PM
--- NOTE | 2017-02-19 17:00 | PCM.DC.MED ---
Discharge Summary Date of Service February 18, 2017 Dates of Hospitalization Date of Hospital Admission Feb 17, 2017 at 14:31 Date of Discharge: February 18, 2017 Providers: Admitting Physician: Raj Connor MD Primary Care Physician: Shelia Kerr MD Attending Physician: Raj Connor MD Diagnosis at Time of Discharge Diagnosis at Time of Discharge probable TIA vs Benign Paroxysmal Peripheral Vertigo Procedures XRay, CTs & MRIs PROCEDURE: X-RAY CHEST ONE VIEW, PORTABLE ([id number]) INDICATIONS: SHORTNESS OF BREATH TECHNIQUE: One view of the chest was acquired. COMPARISON: [facility], CR, CHEST 1VW (PORTABLE), 03/20/2014, 11:15. FINDINGS: Surgical changes and devices: None. Lungs and pleura: No pleural effusions or pneumothorax. Lungs are clear. Mediastinum: Mediastinal contours appear normal. Heart size is normal. Bones and chest wall: No suspicious bony lesions. Overlying soft tissues appear unremarkable. IMPRESSION: No acute pulmonary process. Dictated by: Ying Marin M.D. on 02/17/2017 at 12:48 Approved by: Ying Marin M.D. on 02/17/2017 at 12:48 PROCEDURE: CT BRAIN WITHOUT CONTRAST ([id number]) INDICATIONS: vertigo, off balance, prior vert art occlusion TECHNIQUE: Noncontrast 4.5 mm thick angled axial sections acquired from the foramen magnum to the vertex, with coronal reformats. COMPARISON: [facility], CT, ANGIO HEAD AND NECK (P), 03/20/2014, 12: 47. [facility], CT, BRAIN (TPA), 03/20/2014, 10:55. [facility] , RG, CT HEAD W/O CONTRAST, 10/23/2005, 12:18. FINDINGS: Image quality: Excellent. CSF spaces: Basal cisterns are patent. No extra-axial fluid collections. The ventricles are symmetric in size and shape. Brain: No intracranial bleeds or masses. There is cerebral volume loss for age , with resultant ventricular and sulcal prominence. There are periventricular and deep white matter chronic small vessel ischemic changes. There is intracranial internal carotid artery atherosclerosis. Skull and face: Calvarium and visualized facial bones appear intact, without suspicious lesions. Sinuses: Visualized sinuses and mastoids are clear. IMPRESSION: 1. No acute intracranial process. 2. Mild atrophy and chronic microvascular ischemic changes. Dictated by: Ying Marin M.D. on 02/17/2017 at 12:29 Approved by: Ying Marin M.D. on 02/17/2017 at 12:31 PROCEDURE: MRI STROKE PROTOCOL ([id number]) Pre- and post-contrast brain MRI, non-contrast brain MR angiogram, pre- and postcontrast neck MR angiogram INDICATIONS: Dizziness with Ataxia,right vertebral artery surgery 2014 TECHNIQUE: Brain: Noncontrast axial T1 spin echo, axial T2 fast spin echo, sagittal and axial FLAIR, coronal T2 fast spin echo, axial gradient echo, axial diffusion and ADC through the brain. After the administration of contrast, axial 3D VIBE of the cranial vasculature and brain. Brain MRA: Non-contrast 3-D time of flight MR angiogram, with multiple maximum- intensity-projection (MIP) reformats performed. Neck MRA: Axial and sagittal TruFISP through the neck. Coronal dynamic MR angiogram during administration of contrast in the arterial and venous phases, with 3-dimenstional yfosrek-ocdjilveg-yrxiiaqbaw (MIP) reformats constructed from subtraction images. COMPARISON: [facility], MR, MR ANGIO HEAD W CON, 03/20/2014, 15:50. [facility], MR, MR BRAIN W&WO CON, 03/20/2014, 15:50. [facility], CT, ANGIO HEAD AND NECK (P), 03/20/2014, 12:47. [facility], CT, BRAIN (TPA), 03/20/2014, 10:55. [facility], RG, CT HEAD W/O CONTRAST, 10/23/2005, 12:18. [facility], CT, CT BRAIN WO CON, 2016, 12:22. FINDINGS: Image quality: Excellent. BRAIN: The ventricular system and cortical sulci demonstrate atrophy, consistent for the patient's stated age. There are areas of increased T2/FLAIR signal intensity within the periventricular and subcortical white matter. There is no acute intra-or extra axial fluid collection. No acute hemorrhage, mass lesion or midline shift. Brainstem is unremarkable. There are no areas of restricted diffusion. Globes are symmetrical. Sinuses are aerated. Osseous structures are intact. BRAIN MR ANGIOGRAM: The posterior circulation demonstrates a left vertebral artery dominance. Basilar artery and posterior cerebral arteries demonstrate no areas of hemodynamically significant stenosis, vascular occlusion or aneurysmal dilation. Posterior communicating arteries are within normal limits. There is a focus of signal loss in the distal right vertebral artery. It is noted there is a corresponding to metallic artifact on a CT examination of 02/17/17. This likely corresponds to previous surgical clip and focal occlusion placed secondary to dissection, according to history. NECK MR ANGIOGRAM: The origins of the left and right common, internal and external carotid arteries demonstrate no areas of hemodynamically significant stenosis, vascular occlusion or aneurysmal dilation. Origins of the right vertebral artery demonstrates no areas of hemodynamically significant stenosis, vascular occlusion or aneurysmal dilation. Motion is present the margin of the left vertebral artery. Area of underlying stenosis cannot be excluded. Aortic arch demonstrates conventional anatomy. Limited, visualized portions subclavian vasculature are unremarkable. IMPRESSION: 1. No acute intracranial process. 2. Mild atrophy and chronic microvascular ischemic changes. 3. No areas of hemodynamically significant stenosis, vascular occlusion or aneurysmal dilation within the posterior circulation. It is noted there is loss of signal within the distal aspect of the right vertebral artery. This is consistent with prior examination history demonstrating distal vertebral occlusion and subsequent surgical clip. 4. No areas of hemodynamically significant stenosis, vascular occlusion or aneurysmal dilation within the anterior circulation. 5. No areas of hemodynamically significant stenosis, vascular occlusion or aneurysmal dilation within the neck vasculature. As noted above, there is motion artifact limiting evaluation at the origin of the left vertebral artery. The estimate of stenosis included in the report of the imaging study was calculated using the NASCET method Dictated by: Ying Marin M.D. on 02/17/2017 at 20:24 Approved by: Ying Marin M.D. on 02/17/2017 at 20:35 Cardiac Echo Impression Echocardiogram Report Name: SAVANNA CONRAD BStudy Date: 02/18/2017 Height: 70 in Hospital Exam Location: [facility] Weight: 227 lb Gender: Male BSA: 2.2 m2 : 08/25/1958 Age: 58 yrs BP: 132/76 mmHg Reason For Study: Dizziness Ordering Physician: HOSPITALIST [facility] Performed By: Joi Ames Referring Physician: Dr. Shelia Kerr Interpretation Summary 1. Normal left ventricular size, wall thickness and systolic function with an estimated EF of 60-65% 2. Normal right ventricular size and systolic function. The estimated right atrial pressure is low. 3. No evidence for valvular pathology Compared to the previous study, the estimated right atrial pressure is now lower. With scanning in the abdominal area, there is an incidental finding of a left sided cystic structure (possible renal) - clinical correlation recommended Brief History HPI obtained by Patient had intermittent headaches over the last several days which he states states felt like a "stress headaches" but different. For dinner last night the patient states that his noticed that he was hyperventilating and felt a pressure in his chest and was visibly pale. Patient began to hyperventilate again this morning and felt queasy with "goose bumps" on his arms. Patient then developed dizziness were he began feeling like he was going to fall and he has not fallen. he had no balance problems however things were partially spinning and today he felt like he might fall. His brought him to [facility] emergency room for further evaluation. Patient was evaluated in the emergency room by Dr. Darren Balbuena chest x-ray showed no acute pulmonary process and a CT scan that showed no acute intracranial process however there is mild atrophy and chronic microvascular ischemic changes seen. An NIHSS stroke scale evaluation was performed and the patient's and NIHSS score was 0. 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 Patient was admitted to the hospitalist service for further evaluation and treatment. Hospital Course Patient had intermittent headaches over the last several days which he states states felt like a "stress headaches" but different. For dinner last night the patient states that his noticed that he was hyperventilating and felt a pressure in his chest and was visibly pale. Patient began to hyperventilate again this morning and felt queasy with "goose bumps" on his arms. Patient then developed dizziness were he began feeling like he was going to fall and he has not fallen. he had no balance problems however things were partially spinning and today he felt like he might fall. His brought him to [facility] emergency room for further evaluation. Patient was evaluated in the emergency room by Dr. Darren Balbuena chest x-ray showed no acute pulmonary process and a CT scan that showed no acute intracranial process however there is mild atrophy and chronic microvascular ischemic changes seen. An NIHSS stroke scale evaluation was performed and the patient's and NIHSS score was 0. 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 Patient was admitted to the hospitalist service for further evaluation and treatment. 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 MR stroke protocol showed stable s/p coiling on Rt vertebral artery, no acute findings. Pt remained neurologically intact, didn't have any recurrent episode. No episode observed on telemetry.TTE/ carotid US was unremarkable. Patient deemed safe for d/c to home, encouraged risk control to prevent stroke in the future. # Hypertension, continued home meds, # Bipolar disorder, Continued lithium and other home meds Exam Vital Signs (Last) Date Time Temp Pulse Resp B/P Pulse Ox O2 Delivery O2 Flow Rate FiO2 02/18/17 14:20 36.7 79 18 137/88 97 Room Air Exam NAD, comfortably laying down on the bed no JVD, MMM, no LAD RRR, nl s1, s2 no mrg CTAB, no w,c S,ND,NT,normoactive BS+ warm, no edema, pulses 2/2 Test 02/17/17 12:05 02/17/17 14:15 02/18/17 05:25 Troponin T 0.010ug/L (0.0-0.011) Pro-B-Type Natriuretic Peptide 138.3pg/mL (0-210) Hold Martinez Top Tube Received (Received) Hold Urine Received (Received) White Blood Count 6.7th/mm3 (3.8-10.1) Red Blood Count 4.75mil/mm3 (4.40-5.80) Hemoglobin 14.0g/dL (13.8-17.2) Hematocrit 41.7% (41.0-50.0) Mean Corpuscular Volume 87.8fL (81-100) Mean Corpuscular Hemoglobin 29.5pg (27.0-35.0) Mean Corpuscular Hemoglobin Concent 33.6% (32.0-37.0) Red Cell Distribution Width 13.0% (12.3-15.4) Platelet Count 219bil/L (150-400) Neutrophils (%) (Auto) 69.0% (40-74) Lymphocytes (%) (Auto) 21.7% (14-46) Monocytes (%) (Auto) 8.4% (4-12) Eosinophils (%) (Auto) 0.3% (0-5) Basophils (%) (Auto) 0.3% (0-3) Prothrombin Time 10.1sec (8.1-12.5) Prothromb Time International Ratio 0.95ratio Sodium Level 142mEq/L (134-144) Potassium Level 4.6mEq/L (3.5-5.2) Chloride Level 104mEq/L (97-108) Carbon Dioxide Level 23mmol/L (18-29) Blood Urea Nitrogen 15mg/dL (8-27) Creatinine 1.10mg/dL (0.76-1.27) Estimat Glomerular Filtration Rate 72mL/min (>59) Glucose Level 106mg/dL (60-99) Calcium Level 8.7mg/dL (8.5-10.1) Phosphorus Level 4.1mg/dL (2.5-4.9) Magnesium Level 2.2mg/dL (1.6-2.6) Total Bilirubin 0.4mg/dL (0.0-1.2) Aspartate Amino Transf (AST/SGOT) 18U/L (0-50) Alanine Aminotransferase (ALT/SGPT) 27U/L (0-44) Alkaline Phosphatase 94U/L (25-160) Total Protein 6.2g/dL (6.4-8.4) Albumin 4.1g/dL (3.4-5.0) Triglycerides Level 149mg/dL (0-149) Cholesterol Level 136mg/dL (100-199) LDL Cholesterol, Calculated 66.200mg/dL (0-99) VLDL Cholesterol 29.800mg/dL HDL Cholesterol 40mg/dL (>39) Cholesterol/HDL Ratio 3.40 (0.0-4.4) Thyroid Stimulating Hormone (TSH) 1.580uIU/mL (0.450-4.500) Discharge Medications Discharge Medications Amantadine (Amantadine) 100 Mg Cap BID (Reported) Aspirin (Aspirin) 81 Mg Tablet 81 MG PO DAILY (Reported) Atorvastatin (Lipitor) 20 Mg Tablet 20 MG PO HS (Reported) Furosemide (Furosemide) 20 Mg Tab 20 MG PO DAILY (Reported) Lamotrigine (Lamotrigine) 200 Mg Tablet 200 MG PO DAILY (Reported) Goulds Carbonate (Goulds Carbonate) 300 Mg Cap 300 MG PO HS (Reported) Nebivolol (Bystolic) 10 Mg Tablet DAILY (Reported) Quetiapine Fumarate (Quetiapine Fumarate) 100 Mg Tablet HS (Reported) As needed Meclizine (Bonine) 25 Mg Tab.chew 25 MG PO BID PRN PRN For Dizziness Prescribed by: FANG KARIMI MD Additional med instructions You can take Meclizine for dizziness as needed two time a day Followup Plan Disposition: home Follow-up plan Please follow-up with your primary doctor in 2 weeks Discharge Diet: No restrictions Discharge Activity: No restrictions Patient Instructions You were hospitalized with symptoms concerning for stroke. However work-ups in the hospital did not show any signs of acute stroke.It is possible that her symptoms were related to benign condition such as peripheral vertigo or a copious signs of mini stroke or possibly related to migraine. As we discussed, if you continue to have symptoms, begin first try medicine however, if it continues with severe degree, please return to the hospital for sick for medical help Please control your risk factors to prevent stroke in the future: no smoking, control your blood pressure and cholesterol with medicine, healthy diet with regular exercise. Follow-up Provider: Shelia Kerr MD Follow-up with PCP in: 2 weeks Time spent 65min Fang Karimi MD February 18, 2017 17:12
== END 2017-02-18 15:30 | disposition home or self-care (01) ==
LOC: SED 11:51 → MPC 14:31
PROVIDERS: ADMIT Internal Medicine Infectious Disease; ATTEND Internal Medicine Infectious Disease
DX: R42 Dizziness and giddiness (principal); R51 Headache; I63.9 Cerebral infarction, unspecified; I10 Essential (primary) hypertension; F31.9 Bipolar disorder, unspecified; Z87.891 Personal history of nicotine dependence; Z79.82 Long term (current) use of aspirin
CPT/HCPCS: 36415; 70450; 70549; 70553; 71010; 80053; 80061; 83735; 83880; 84100; 84443; 84484; 85025; 85610; 92610; 93005; 93880; 96361; 96374; 97161; 99285; A9585; C8929; G0378; J2405; J7030